=== PATIENT | male | born 1995 | race Caucasian/White ===

== ENCOUNTER 2022-05-09 18:46 | Inpatient (IN) | payer OTHER ==
[~2022-05-09] VITALS: Ht 175.3 cm; Wt 75.1 kg
[2022-05-09 18:51] VITALS: BP_SYST 146
--- NOTE | 2022-05-09 18:57 | NUR ---
Patient triaged and placed BED 3. VSS and patient appears in no acute distress at this time. Accompanied by FAMILY, awaiting available bed, and MD notified of need for MSE.
[2022-05-09] MEDS ORDERED: NACL 0.9% 1,000 ML IV ONE ×2 (19:15→23:15)
[2022-05-09] MEDS ORDERED: LORazepam 2 MG/ML VIAL IVP ONE ×2 (19:15→20:45)
[2022-05-09 19:50] LABS: BASOPHILS # (AUTO) 0.1 K/uL (0.0-0.2); BASOPHILS % (AUTO) 1.1 % (0.0-2.0); EOSINOPHILS % (AUTO) 0.1 % (0.0-4.0); HEMATOCRIT 41.9 % (36-54); LYMPHOCYTES # (AUTO) 1.1 K/uL (1.0-5.5); LYMPHOCYTES % (AUTO) 20.4 % (20.5-51.5); MEAN CORPUSCULAR HEMOGLOBIN 30 pg (27-31); MEAN CORPUSCULAR HGB CONC 33 % (32-36); MEAN CORPUSCULAR VOLUME 89 fL (79.0-98.0); MONOCYTES # (AUTO) 0.4 K/uL (0.0-1.0); MONOCYTES % (AUTO) 7.6 % (1.7-9.3); NEUTROPHILS # (AUTO) 3.8 K/uL (1.8-7.7); NEUTROPHILS % (AUTO) 70.8 % (40.0-70.0); PLATELET COUNT (AUTO) 276 K/uL (130-430); RED BLOOD CELL COUNT(AUTO) 4.73 MIL/uL (4.2-6.2); RED CELL DISTRIBUTION WIDTH 15.4 % (9.0-15.0); WHITE BLOOD COUNT (AUTO) 5.3 K/uL (4.8-10.8)
[2022-05-09 20:10] LABS: ANION GAP 18 (5-15); CALCIUM 9.6 mg/dL (8.4-11.0); CHLORIDE 96 mmol/L (98-107); CREATININE 1.04 mg/dL (0.55-1.30); GFR AFRICAN AMERICAN 109 mL/min (>90); GLUCOSE 94 mg/dL (70-99); UREA NITROGEN, BLOOD 15 mg/dL (8-21)
[2022-05-09 20:14] LABS: ALANINE AMINOTRANSFERASE 30 U/L (12-78); ALBUMIN 4.7 g/dL (3.4-4.8); ALCOHOL, BLOOD 7 mg/dL (<10); ASPARTATE AMINOTRANSFERASE 28 U/L (10-37); TOTAL BILIRUBIN 1.2 mg/dL (0.0-1.0)
[2022-05-09 20:15] LABS: ACETAMINOPHEN < 1 ug/mL (1-30)
[2022-05-09] MEDS ORDERED: PANTOPRAZOLE SODIUM 80 MG in NS 100 ML IV ONE (20:45)
[2022-05-09] MEDS ORDERED: PANTOPRAZOLE SODIUM 40 MG/VIAL (PROTONIX) ONE (20:52)
[2022-05-09] MEDS ORDERED: PRED20TA PO ×2 (21:29)
[2022-05-09] MEDS ORDERED: IBUP-1969 PO ×2 (21:29)
[2022-05-09] MEDS ORDERED: DIPH25CA83 PO ×2 (21:29)
[2022-05-09] MEDS ORDERED: NEOSEYEO OP ×2 (21:29)
[2022-05-09] MEDS ORDERED: FOLIC ACID 1 MG, THIAMINE HCL 100 MG, MAGNESIUM SULFATE 1 GM, MVI 10 ML in NACL 0.9% 1,... IV ONE (22:30)
[2022-05-09] MEDS ORDERED: chlordiazePOXIDE HCL 25 MG CAPSULE PO ONE (22:45)
[2022-05-09] MEDS ORDERED: ALUMINUM HYDROXIDE 1920 mg/30 ML UDC PO PRN (22:45)
[2022-05-10] MEDS ORDERED: cloNIDine HCL 0.1 MG TABLET PO PRN (00:15)
[2022-05-10] MEDS ORDERED: ONDANSETRON HCL 4 MG/2 ML VIAL IVP PRN (00:15)
--- NOTE | 2022-05-10 00:45 | NUR ---
Admit bed requested Patient will be admitted to care of []Wilbur kimball Admitted to [] unit.tele Diagnosis []delerosa brown Inpatient (Yes or No) []yes Observation (Yes or No) []no Orientation concerns or request close to nursing station (Yes or No) [No] Covid Status []neg Isolation requirements []no Needs a sitter []no From Home (Yes or if No enter name of facility) []yes Requires Dialysis (Yes or No) [] no Med Rec Completed (Yes of No) []no
[2022-05-10 00:56] LABS: BILIRUBIN,URINE NEGATIVE (NEGATIVE); BLOOD, URINE NEGATIVE (NEGATIVE); COLOR,URINE YELLOW (YELLOW); GLUCOSE,URINE NEGATIVE (NEGATIVE); KETONES,URINE 3+ (NEGATIVE); LEUKOCYTE ESTERASE ,URINE NEGATIVE (NEGATIVE); NITRITE, URINE NEGATIVE (NEGATIVE); PH,URINE 7.5 (5.0-8.0); PROTEIN URINE 1+ (NEGATIVE); UROBILINOGEN,URINE 0.2 (0.2-1.0)
[2022-05-10 01:09] LABS: CLARITY/URINE HAZY (CLEAR)
[2022-05-10 01:10] LABS: BACTERIA,URINE None Seen /HPF (None Seen); RBC,URINE 0-3 /HPF (0-3); WBC,URINE 0-3 /HPF (0-3)
--- NOTE | 2022-05-10 01:35 | NUR ---
ADMISSION NOTE Received patient from ER via gurney, he walked to his bed. Patient admitted with diagnosis of Delirium Tremens. Patient is awake, alert, oriented X4. Patient oriented to hospital room, call light, toileting, pain management and safety-teach back done. Received report from JUSTIN Palafox. Personal belongings checked and Belongings List documented. Call light within reach.
[2022-05-10 01:46] VITALS: BP_SYST 140
[2022-05-10 01:52] LABS: BARBITURATE, URINE NEGATIVE (NEG <=200); BENZODIAZEPINE, URINE POSITIVE (NEG <=150); CANNABINOID, URINE POSITIVE (NEG <=50); METHAMPHETAMINES SCREEN,URINE NEGATIVE (NEG <=500); URINE AMPHETAMINE NEGATIVE (NEG <=500); URINE METHADONE NEGATIVE (NEG <=200)
[2022-05-10 01:53] LABS: COCAINE, URINE NEGATIVE (NEG <=150); OPIATE, URINE NEGATIVE (NEG <=100); PHENCYCLIDINE SCREEN,URINE NEGATIVE (NEG <=25); UR TRICYCLIC ANTIDEPRESSANTS NEGATIVE (NEG <=300); URINE OXYCODONE SCREEN NEGATIVE (NEG <=100); URINE PROPOXYPHENE SCREEN NEGATIVE (NEG <=300)
[2022-05-10] MEDS ORDERED: THIAMINE HCL 100 MG/ML VIAL ONE (02:04)
[2022-05-10] MEDS ORDERED: MVI 10 ML VIAL IV ONE (02:04)
[2022-05-10] MEDS ORDERED: FOLIC ACID 5 MG/ML VIAL IV ONE (02:04)
[2022-05-10] MEDS ORDERED: MAGNESIUM SULFATE 1 GM/2 ML VIAL ONE (02:04)
[2022-05-10] MEDS: LORazepam 2 MG/ML VIAL IVP PRN ×2 (02:33→06:35)
--- NOTE | 2022-05-10 06:21 | NUR ---
CLOSING NOTE PATIENT IN BED, RESTING AT THIS TIME. NO S/S OF ACUTE DISTRESS. BREATHING EVEN AND UNLABORED. IVF INFUSING WELL, IV SITE PATENT, NO SIGNS OF INFILTRATION OR INFECTION NOTED. ALL NEEDS MET THROUGHOUT SHIFT. FALL, SAFETY, PRECAUTIONS MAINTAINED THROUGHOUT SHIFT. WILL CONTINUE TO MONITOR UNTIL PATIENT CARE IS ENDORSED TO ONCOMING DAYSHIFT NURSE.
[2022-05-10 08:31] LABS: BASOPHILS % (AUTO) 0.6 % (0.0-2.0); EOSINOPHILS # (AUTO) 0.1 K/uL (0.0-0.4); EOSINOPHILS % (AUTO) 1.7 % (0.0-4.0); HEMATOCRIT 40.8 % (36-54); HEMOGLOBIN 13.4 g/dL (14.0-18.0); LYMPHOCYTES # (AUTO) 1.7 K/uL (1.0-5.5); LYMPHOCYTES % (AUTO) 28.1 % (20.5-51.5); MEAN CORPUSCULAR HEMOGLOBIN 30 pg (27-31); MEAN CORPUSCULAR HGB CONC 33 % (32-36); MEAN CORPUSCULAR VOLUME 90 fL (79.0-98.0); MONOCYTES # (AUTO) 0.5 K/uL (0.0-1.0); MONOCYTES % (AUTO) 8.4 % (1.7-9.3); NEUTROPHILS # (AUTO) 3.7 K/uL (1.8-7.7); NEUTROPHILS % (AUTO) 61.2 % (40.0-70.0); PLATELET COUNT (AUTO) 241 K/uL (130-430); RED BLOOD CELL COUNT(AUTO) 4.53 MIL/uL (4.2-6.2); RED CELL DISTRIBUTION WIDTH 15.7 % (9.0-15.0)
[2022-05-10 08:55] LABS: ALBUMIN 3.8 g/dL (3.4-4.8); CALCIUM 8.6 mg/dL (8.4-11.0); CREATININE 0.93 mg/dL (0.55-1.30); TOTAL BILIRUBIN 1.3 mg/dL (0.0-1.0)
[2022-05-10] MEDS ORDERED: PANTOPRAZOLE SODIUM 40 MG/VIAL (PROTONIX) IVP SCH (09:00)
[2022-05-10] MEDS ORDERED: FOLIC ACID 1 MG TABLET PO SCH (09:00)
[2022-05-10] MEDS ORDERED: THIAMINE HCL 100 MG TABLET PO SCH (09:00)
[2022-05-10] MEDS ORDERED: chlordiazePOXIDE HCL 25 MG CAPSULE PO SCH (09:00)
[2022-05-10 11:04] VITALS: BP_SYST 137
--- NOTE | 2022-05-10 11:44 | NUR ---
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 Per patient, he lives in [place], [place] with his family. He is in [place] visiting with his ashley, whom he has been with for about one year. Per patient, [facility] 70[facility]. He served in the [employer] for 4 and a half years. He states he was stationed in [place], [place], and [place]. He acknowledges that he has suffered from PTSD, panic attacks, severe trauma, anxiety, and depression. His support includes his fiance, mother, and sister. He has begun participating in [place] programs that he is now eligible to participate in for free. The patient verbalizes his over consumption of alcohol. He states he began drinking in [place] when he was 16, as it was legal there. His alcohol of choice is bourbon. Per patient, he drinks about 2 cups a day. The patient receives mental health services from the [facility] in [place], [place]. He states he has a case mgr, social work manager, individual therapist, psychologist, and group therapist. [facility], [facility] able [facility] participate in a 5-month detox inpatient treatment program. Per patient, he had 5 months prior to his visit here to [place]. (The patient is visiting his fitraci's family for a wedding.) The patient states [facility] for [phone] at in [place], [place]. Prior to leaving the room, I brought forward community and generic resources related to the patient's alcoholism as well as therapeutic intervention. The patient was advised that some of the information is for local usage, however there are still some services that he can attain in [place]. The patient was receptive of the information. I spoke with JUSTIN Estevez at the nurse's station and informed her of my conversation with the patient at bedside and resources provided. At this time, there are no further needs needed from social work manager.
--- NOTE | 2022-05-10 14:57 | NUR ---
Patient eloped without informing staff, IV was hanging out and removed prior to patient leaving the doctor was informed, last time patient seen was 10:45, he left approximately 11:00.
--- NOTE | 2022-05-10 15:30 | NUR ---
Received a phone call from Miriam [phone] at [facility]-you can call her for DC needs-they have no beds available
== END 2022-05-10 11:00 | disposition left against medical advice (07) | DRG 368 ==
LOC: SED 18:46 → STU 23:12
PROVIDERS: ADMIT Internal Medicine; ATTEND Internal Medicine
DX: K20.81 Other esophagitis with bleeding (principal); K22.6 Gastro-esophageal laceration-hemorrhage syndrome; F10.231 Alcohol dependence with withdrawal delirium; F43.10 Post-traumatic stress disorder, unspecified; Y90.9 Presence of alcohol in blood, level not specified; Z53.29 Procedure and treatment not carried out because of patient's decision for other reasons; Z20.822 Contact with and (suspected) exposure to COVID-19; F19.10 Other psychoactive substance abuse, uncomplicated
CPT/HCPCS: 36415; 71045; 80053; 80307; 81000; 84484; 85025; 93005; 96361; 96374; 96375; 99291; C9113; G0480; G0481; G0482; J2060; J2405; J3411; J3475; J3490; Q0162